=== PATIENT | male | born 1955 | race Native Hawaiian/Other Pacific Islander ===

== ENCOUNTER 2019-05-16 12:10 | Outpatient (CLI) | payer BC ==
[2019-05-16 12:55] LABS: PLATELET COUNT 220 K/uL (142-355)
[2019-05-16 13:08] LABS: POTASSIUM 4.1 mmol/L (3.6-5.2)
== END 2019-05-16 22:30 | disposition home or self-care (01) ==
LOC: LABW 12:10
PROVIDERS: Internal Medicine Medical Oncology
DX: C18.6 Malignant neoplasm of descending colon (principal)
CPT/HCPCS: 36415; 80053; 82378; 85027

== ENCOUNTER 2019-11-19 10:53 | Outpatient (CLI) | payer OTHER, BC ==
[2019-11-19 11:17] LABS: PLATELET COUNT 239 K/uL (142-355); POTASSIUM 4.3 mmol/L (3.6-5.2)
== END 2019-11-19 19:16 | disposition home or self-care (01) ==
LOC: LABW 10:53
PROVIDERS: Internal Medicine Medical Oncology
DX: C18.6 Malignant neoplasm of descending colon (principal)
CPT/HCPCS: 36415; 80053; 82378; 85027

== ENCOUNTER 2020-05-23 11:28 | Outpatient (CLI) | payer BC ==
[2020-05-23 11:58] LABS: PLATELET COUNT 215 K/uL (142-355)
== END 2020-05-23 21:52 | disposition home or self-care (01) ==
LOC: LABW 11:28
PROVIDERS: ATTEND Internal Medicine Medical Oncology
DX: C18.6 Malignant neoplasm of descending colon (principal)
CPT/HCPCS: 36415; 80053; 82378; 85027

== ENCOUNTER 2021-05-25 10:36 | Outpatient (CLI) | payer BC ==
[2021-05-25 10:57] LABS: PLATELET COUNT 242 K/uL (142-355)
[2021-05-25 11:26] LABS: POTASSIUM 4.1 mmol/L (3.6-5.2)
== END 2021-05-25 19:14 | disposition home or self-care (01) ==
LOC: LABW 10:36
PROVIDERS: ATTEND Internal Medicine Medical Oncology
DX: C18.6 Malignant neoplasm of descending colon (principal)
CPT/HCPCS: 36415; 80053; 82378; 85027

== ENCOUNTER 2022-05-17 07:27 | Outpatient (CLI) | payer BC | END 2022-05-17 19:26 | disposition home or self-care (01) | LOC: LABW 07:27 | PROVIDERS: ATTEND Internal Medicine Cardiovascular Disease | DX: E78.49 Other hyperlipidemia (principal); M10.072 Idiopathic gout, left ankle and foot | CPT/HCPCS: 36415; 80053; 80061; 84550 ==

== ENCOUNTER 2022-06-03 12:39 | Outpatient (CLI) | payer BC ==
[2022-06-03 12:58] LABS: PLATELET COUNT 246 K/uL (142-355)
[2022-06-03 13:30] LABS: POTASSIUM 4.2 mmol/L (3.6-5.2)
== END 2022-06-03 22:28 | disposition home or self-care (01) ==
LOC: LABW 12:39
PROVIDERS: ATTEND Nurse Practitioner Family
DX: C18.6 Malignant neoplasm of descending colon (principal); Z12.5 Encounter for screening for malignant neoplasm of prostate; R97.20 Elevated prostate specific antigen [PSA]
CPT/HCPCS: 36415; 80053; 82378; 84153; 85027